=== PATIENT | male | born 1965 | race African-American/Black ===

== ENCOUNTER 2019-07-15 11:47 | Day surgery (SDC) | payer OTHER ==
[2019-07-15 12:33] VITALS: BMI 24.9
[2019-07-15 13:51] VITALS: TEMP 98.4
[2019-07-15 14:35] VITALS: BP 110/67; PULSE 67
== END 2019-07-15 14:40 | disposition home or self-care (01) ==
LOC: JASU-ENDO 11:47
PROVIDERS: ATTEND Internal Medicine Gastroenterology
PROC: 0DJD8ZZ Inspection of Lower Intestinal Tract, Via Natural or Artificial Opening Endoscopic (ICD-10-PCS; principal; 2019-07-15 13:00)
DX: R63.4 Abnormal weight loss (principal); R93.3 Abnormal findings on diagnostic imaging of other parts of digestive tract